=== PATIENT | female | born 1985 | race Native Hawaiian/Other Pacific Islander ===

== ENCOUNTER 2017-08-05 20:29 | Emergency (ER) | payer OTHER ==
[2017-08-05 21:08] LABS: BILIRUBIN,URINE NEGATIVE (NEGATIVE); GLUCOSE, URINE (UA) NEGATIVE (NEGATIVE); KETONES,URINE (UA) NEGATIVE (NEGATIVE); LEUKOCYTE ESTERASE, URINE NEGATIVE (NEGATIVE); NITRITE,URINE NEGATIVE (NEGATIVE); OCCULT BLOOD,URINE LARGE (NEGATIVE); PROTEIN,URINE NEGATIVE (NEGATIVE); UROBILINOGEN,URINE 0.2 (NORMAL) E.U./dL (NORMAL)
[2017-08-05 21:09] LABS: CLARITY,URINE HAZY (CLEAR)
--- NOTE | 2017-08-05 21:14 | ED Physician Documentation ---
PD HPI FEMALE - Stated complaint Stated Complaint: FEMALE /9WK OB - Chief complaint Chief Complaint: Abd Pain - History obtained from History obtained from: Patient - History of Present Illness Timing - onset: How many weeks ago (2 weeks ago had some cramps and mild vaginal spotting. Had increased spotting the past 3 days then to amount of a pad every few hours today with some small clots. She is 9 weeks EGA by dates. No fevers, back pain, nor vomiting.) Timing - details: Gradual onset, Waxing and waning Associated symptoms: Pelvic pain (cramping at times), Vaginal bleeding. No: Fever, Abdominal pain, Vaginal discharge, Genital sore/lesion, Dysuria Contributing factors: Similar symptoms before: Has not had sx before Recently seen: Not recently seen Review of Systems Constitutional: denies: Fever, Chills, Myalgias Nose: denies: Rhinorrhea / runny nose, Congestion Throat: denies: Sore throat Respiratory: denies: Cough GI: reports: Abdominal Pain. denies: Nausea, Vomiting, Diarrhea : reports: Now EGA (9 weeks). denies: Dysuria, Frequency, Discharge Neurologic: denies: Generalized weakness, Focal weakness, Numbness, Near syncope PD PAST MEDICAL HISTORY - Past Medical History Past Medical History: No - Past Surgical History Past Surgical History: No - Present Medications Home Medications: Ambulatory Orders Medication Instructions Recorded Confirmed Pnv95/Ferrous Fumarate/FA 1 tab PO DAILY 08/05/17 08/05/17 [ Formula Tablet] - Allergies Allergies/Adverse Reactions: Allergies Allergy/AdvReac Type Severity Reaction Status Date / Time No Known Drug Allergies Allergy Verified 08/05/17 20:36 - Social History Does the pt smoke?: No Smoking Status: Never smoker Does the pt drink ETOH?: No Does the pt have substance abuse?: No - Immunizations Immunizations are current?: Yes PD ED PE NORMAL - Vitals Vital signs reviewed: Yes - General General: Alert and oriented X 3, No acute distress, Well developed/nourished - Neck Neck: Supple, no meningeal sign, No adenopathy - Cardiac Cardiac: RRR, No murmur - Respiratory Respiratory: Clear bilaterally - Abdomen Abdomen: Normal bowel sounds, Soft, Non tender, Non distended, No organomegaly, Other (bedside U/S showed IUP at 7 weeks size with gest sac 9 weeks size. No free fluid. I did not see FHR. ) - Female Female : Deferred - Back Back: No CVA TTP - Derm Derm: Normal color, Warm and dry - Extremities Extremities: No deformity, No tenderness to palpate Results - Vitals Vitals: Vital Signs - 24 hr 08/05/17 08/05/17 20:32 23:43 Temperature 37.1 C Heart Rate 78 68 Respiratory 18 16 Rate Blood Pressure 105/72 110/78 O2 Saturation 100 98 Oxygen O2 Source Room air - Labs Labs: Laboratory Tests 08/05/17 08/05/17 08/05/17 21:03 21:57 21:57 WBC 14.0 H RBC 4.64 Hgb 13.4 Hct 41.0 MCV 88.4 MCH 29.0 MCHC 32.7 RDW 13.0 Plt Count 253 MPV 8.0 Neut # 9.5 H Lymph # 3.3 [place] # 0.9 Eos # 0.2 Baso # 0.1 Absolute Nucleated RBC 0.01 Nucleated RBC % 0.1 HCG, Quant Urine Color YELLOW Urine Clarity HAZY Urine pH 6.0 Ur Specific [place] 1.025 Urine Protein NEGATIVE Urine Glucose (UA) NEGATIVE Urine Ketones NEGATIVE Urine Occult Blood LARGE H Urine Nitrite NEGATIVE Urine Bilirubin NEGATIVE Urine Urobilinogen 0.2 (NORMAL) Ur Leukocyte Esterase NEGATIVE Urine RBC TNTC H Urine WBC 0-3 Ur Squamous Epith Cells FEW Squamous Urine Bacteria None Seen Ur Microscopic Review INDICATED Blood Type A POSITIVE 08/05/17 21:57 WBC RBC Hgb Hct MCV MCH MCHC RDW Plt Count MPV Neut # Lymph # [place] # Eos # Baso # Absolute Nucleated RBC Nucleated RBC % HCG, Quant 63335.00 Urine Color Urine Clarity Urine pH Ur Specific [place] Urine Protein Urine Glucose (UA) Urine Ketones Urine Occult Blood Urine Nitrite Urine Bilirubin Urine Urobilinogen Ur Leukocyte Esterase Urine RBC Urine WBC Ur Squamous Epith Cells Urine Bacteria Ur Microscopic Review Blood Type PD MEDICAL DECISION MAKING - ED course Complexity details: reviewed results (rH positive. Blood count okay. Quant 14K and U/S showing no heart beat so Radiologist says conclusive IUFD. ), considered differential (consider spotting in or miscarriage. Bedside U/S did not show heart beat and was only 7 week size. Will get formal U/S and quant HCG. ), d/w patient Departure - Departure Disposition: Home, Self Care Clinical Impression: Incomplete miscarriage Condition: Stable Record reviewed to determine appropriate education?: Yes Instructions: ED Miscarriage Incom Follow-Up: AUBRIE MIRANDA [Primary Care Provider] - Comments: There is no heartbeat seen on the ultrasound in the fetus is far enough along that that should be visible. It therefore looks like a demise and incomplete miscarriage. I am sorry for your loss. Tylenol or Ibuprofen if needed for pains. Call your [employer] [facility] tomorrow to tell them you are having a miscarriage and need to be seen in the next couple of days. Follow-up with them. Return to the ER sooner if you have significant pain, significant bleeding, fevers, feeling generally ill, other concerns. Discharge Date/Time: 08/05/17 23:43
[2017-08-05 21:20] LABS: RBC,URINE TNTC /HPF (0-5); SQUAMOUS EPITHELIAL CELL,UR FEW Squamous (<= Few)
[2017-08-05 21:21] LABS: BACTERIA,URINE None Seen /HPF (None Seen)
[2017-08-05] MEDS ORDERED: ACETAMINOPHEN 325 MG TABLET PO STA (21:44)
[2017-08-05 22:09] LABS: BASOPHILS # (AUTO) 0.1 10^3/uL (0.0-0.1); BASOPHILS % (AUTO) 0.8 %; EOSINOPHILS # (AUTO) 0.2 10^3/uL (0.0-0.7); EOSINOPHILS % (AUTO) 1.5 %; HGB - HEMOGLOBIN 13.4 g/dL (12.0-16.0); LYMPHOCYTES # (AUTO) 3.3 10^3/uL (1.5-3.5); LYMPHOCYTES % (AUTO) 23.4 %; MEAN CORPUSCULAR HGB CONC 32.7 g/dL (32.0-36.0); MEAN CORPUSCULAR VOLUME 88.4 fL (81.0-99.0); MONOCYTES # (AUTO) 0.9 10^3/uL (0.0-1.0); MONOCYTES % (AUTO) 6.6 %; NEUTROPHILS # (AUTO) 9.5 10^3/uL (1.5-6.6); NEUTROPHILS % (AUTO) 67.7 %; PLT - PLATELET COUNT 253 10^3/uL (130-450); RED BLOOD COUNT 4.64 10^6/uL (4.20-5.40)
--- NOTE | 2017-08-05 23:16 | Ultrasound Preliminary Report ---
Exam: US OB TRANSVAGINAL IMPRESSION: 1. Single intrauterine gestational sac and embryo. [place]-rump length measures 10.1 mm. No cardiac act ivity. These findings are compatible with demise. 2. Small perigestational hemorrhage. 3. Both ovaries and adnexa are normal. RADIA The above findings were discussed with Gucci Hawkins by Dr. Sofy Quigley at 23:15 hrs on 08/05/17. SITE ID: [id number]
--- NOTE | 2017-08-05 23:17 | Ultrasound Preliminary Report ---
Exam: US OB FIRST TRIMESTER IMPRESSION: 1. Single intrauterine gestational sac and embryo. [place]-rump length measures 10.1 mm. No cardiac act ivity. These findings are compatible with demise. 2. Small perigestational hemorrhage. 3. Both ovaries and adnexa are normal. RADIA The above findings were discussed with Gucci Hawkins by Dr. Sofy Quigley at 23:15 hrs on 08/05/17. SITE ID: [id number]
--- NOTE | 2017-08-05 23:29 | Ultrasound Report ---
EXAM: FIRST TRIMESTER OBSTETRIC ULTRASOUND (Less than 11 weeks) EXAM DATE: 08/05/2017 10:06 PM. CLINICAL HISTORY: Early and vaginal bleeding. LMP: 06/02/2017. COMPARISONS: None. TECHNIQUE: Transabdominal and transvaginal ultrasound examination with static image documentation. CLINICAL DATES: EGA 9 weeks 1 day with KIMBERLY 03/09/2018 based on LMP. ASSESSMENT: Gestational Sac: Single intrauterine. Embryo: CRL (crown-rump length) 10.1 mm = 7 weeks 1 day. Cardiac activity: None. Yolk sac: 2.8 mm. Amniotic fluid: Not accurately assessed at this gestational age. Early placenta: Not visible at this gestational age. Other: Small perigestational hemorrhage is noted. MATERNAL STRUCTURES: Uterus: Anteverted. Unremarkable. Cervix: Closed. Right Ovary/Adnexa: Unremarkable. The ovary measures 2.7 x 1.9 x 1.8 cm, volume 4.8 cc. Normal folli cles are noted. Left Ovary/Adnexa: Unremarkable. The ovary measures 2.7 x 2.2 x 2.6 cm, volume 7.8 cc. Normal follic les are noted. Free Fluid: None. Other: None. IMPRESSION: 1. Single intrauterine gestational sac and embryo. [place]-rump length measures 10.1 mm. No cardiac act ivity. These findings are compatible with demise. 2. Small perigestational hemorrhage. 3. Both ovaries and adnexa are normal. RADIA The above findings were discussed with Gucci Hawkins by Dr. Sofy Quigley at 23:15 hrs on 08/05/17. Referring Provider Line: [phone] SITE ID: [id number]
--- NOTE | 2017-08-05 23:29 | Ultrasound Report ---
EXAM: FIRST TRIMESTER OBSTETRIC ULTRASOUND (Less than 11 weeks) EXAM DATE: 08/05/2017 10:06 PM. CLINICAL HISTORY: Early and vaginal bleeding. LMP: 06/02/2017. COMPARISONS: None. TECHNIQUE: Transabdominal and transvaginal ultrasound examination with static image documentation. CLINICAL DATES: EGA 9 weeks 1 day with KIMBERLY 03/09/2018 based on LMP. ASSESSMENT: Gestational Sac: Single intrauterine. Embryo: CRL (crown-rump length) 10.1 mm = 7 weeks 1 day. Cardiac activity: None. Yolk sac: 2.8 mm. Amniotic fluid: Not accurately assessed at this gestational age. Early placenta: Not visible at this gestational age. Other: Small perigestational hemorrhage is noted. MATERNAL STRUCTURES: Uterus: Anteverted. Unremarkable. Cervix: Closed. Right Ovary/Adnexa: Unremarkable. The ovary measures 2.7 x 1.9 x 1.8 cm, volume 4.8 cc. Normal folli cles are noted. Left Ovary/Adnexa: Unremarkable. The ovary measures 2.7 x 2.2 x 2.6 cm, volume 7.8 cc. Normal follic les are noted. Free Fluid: None. Other: None. IMPRESSION: 1. Single intrauterine gestational sac and embryo. [place]-rump length measures 10.1 mm. No cardiac act ivity. These findings are compatible with demise. 2. Small perigestational hemorrhage. 3. Both ovaries and adnexa are normal. RADIA The above findings were discussed with Gucci Hawkins by Dr. Sofy Quigley at 23:15 hrs on 08/05/17. Referring Provider Line: [phone] SITE ID: [id number]
[2017-08-05 23:44] VITALS: BP 110/78
== END 2017-08-05 23:43 | disposition home or self-care (01) ==
LOC: ED 20:29
DX: O03.4 Incomplete spontaneous abortion without complication (principal)
CPT/HCPCS: 36415; 76801; 76817; 81001; 84702; 85025; 86900; 86901; 99283; A9270; 81003

== ENCOUNTER 2017-08-07 20:13 | Emergency (ER) | payer OTHER ==
--- NOTE | 2017-08-07 20:45 | ED Physician Documentation ---
PD HPI FEMALE - Stated complaint Stated Complaint: POSS MISCARRY - Chief complaint Chief Complaint: Abd Pain - History obtained from History obtained from: Patient, Family - History of Present Illness Timing - onset: Today Pain level max: 5 Pain level max: 3 Associated symptoms: No: Fever, Chest/shoulder pain, Abdominal pain, Back pain Contributing factors: - Additional information Additional information: Patient is a 32-year-old female, 3 para 2 who was diagnosed with an intrauterine demise 3 days ago. Today started bleeding heavily and passing large clots. This started approximately an hour and a half ago. Came in for evaluation as her primary care provider told her that if she had a large amount of bleeding she needs to be seen in the emergency department. She is having pelvic cramping consistent with her normal menses. She is not lightheaded. No chest pain. Review of Systems Ten Systems: 10 systems reviewed and negative Constitutional: denies: Fever, Chills Ears: denies: Ear pain Nose: denies: Rhinorrhea / runny nose, Congestion Throat: denies: Sore throat Respiratory: denies: Cough GI: denies: Nausea, Vomiting, Diarrhea : reports: Vaginal bleeding Skin: denies: Rash Musculoskeletal: denies: Neck pain, Back pain Neurologic: denies: Focal weakness, Syncope, Headache PD PAST MEDICAL HISTORY - Past Medical History Past Medical History: No - Past Surgical History Past Surgical History: No - Present Medications Home Medications: Ambulatory Orders Medication Instructions Recorded Confirmed Pnv95/Ferrous Fumarate/FA 1 tab PO DAILY 08/05/17 08/05/17 [ Formula Tablet] - Allergies Allergies/Adverse Reactions: Allergies Allergy/AdvReac Type Severity Reaction Status Date / Time No Known Drug Allergies Allergy Verified 08/07/17 20:39 - Social History Does the pt smoke?: No Smoking Status: Never smoker Does the pt drink ETOH?: No Does the pt have substance abuse?: No - Immunizations Immunizations are current?: Yes - POLST Patient has POLST: No PD ED PE NORMAL - Vitals Vital signs reviewed: Yes - General General: Alert and oriented X 3, No acute distress - HEENT HEENT: Moist mucous membranes - Neck Neck: Supple, no meningeal sign - Cardiac Cardiac: RRR, Strong equal pulses - Respiratory Respiratory: No respiratory distress, Clear bilaterally - Abdomen Abdomen: Soft, Non tender, Non distended - Derm Derm: Warm and dry - Neuro Neuro: Alert and oriented X 3 - Psych Psych: Normal mood, Normal affect Results - Vitals Vitals: Vital Signs - 24 hr 08/07/17 08/07/17 08/07/17 20:20 21:44 22:17 Temperature 36.3 C L Heart Rate 124 H 113 H 116 H Respiratory 18 16 18 Rate Blood Pressure 131/94 H 120/83 H 90/57 L O2 Saturation 100 98 99 08/07/17 08/07/17 22:18 23:13 Temperature Heart Rate 106 H 90 Respiratory 16 Rate Blood Pressure 104/74 124/89 H O2 Saturation 100 Oxygen O2 Source Room air - Labs Labs: Laboratory Tests 08/07/17 08/07/17 08/07/17 20:35 20:36 20:36 WBC 17.9 H RBC 4.60 Hgb 13.2 Hct 40.6 MCV 88.2 MCH 28.6 MCHC 32.5 RDW 13.2 Plt Count 292 MPV 8.1 Neut # 13.6 H Lymph # 3.2 [place] # 0.8 Eos # 0.2 Baso # 0.1 Absolute Nucleated RBC 0.01 Nucleated RBC % 0.0 Sodium 135 Potassium 3.3 L Chloride 102 Carbon Dioxide 23 Anion Gap 10.0 BUN 10 Creatinine 0.7 Estimated GFR (MDRD) 98 Glucose 149 H Calcium 9.1 Total Bilirubin 0.7 AST 32 ALT 23 Alkaline Phosphatase 73 Total Protein 8.3 H Albumin 4.1 Globulin 4.2 Albumin/Globulin Ratio 1.0 Lipase 35 HCG, Quant Urine Color RED/BLOODY Urine Clarity BLOODY Urine pH 7.0 Ur Specific [place] 1.025 Urine Protein >=300 H Urine Glucose (UA) 100 H Urine Ketones NEGATIVE Urine Occult Blood LARGE H Urine Nitrite POSITIVE H Urine Bilirubin NEGATIVE Urine Urobilinogen 0.2 (NORMAL) Ur Leukocyte Esterase TRACE H Urine RBC TNTC H Urine WBC 0-3 Ur Squamous Epith Cells NONE SEEN Urine Bacteria None Seen Ur Microscopic Review INDICATED Urine Culture Comments INDICATED 08/07/17 20:36 WBC RBC Hgb Hct MCV MCH MCHC RDW Plt Count MPV Neut # Lymph # [place] # Eos # Baso # Absolute Nucleated RBC Nucleated RBC % Sodium Potassium Chloride Carbon Dioxide Anion Gap BUN Creatinine Estimated GFR (MDRD) Glucose Calcium Total Bilirubin AST ALT Alkaline Phosphatase Total Protein Albumin Globulin Albumin/Globulin Ratio Lipase HCG, Quant 7323.00 Urine Color Urine Clarity Urine pH Ur Specific [place] Urine Protein Urine Glucose (UA) Urine Ketones Urine Occult Blood Urine Nitrite Urine Bilirubin Urine Urobilinogen Ur Leukocyte Esterase Urine RBC Urine WBC Ur Squamous Epith Cells Urine Bacteria Ur Microscopic Review Urine Culture Comments PD MEDICAL DECISION MAKING - ED course Complexity details: reviewed results, re-evaluated patient, considered differential, d/w patient ED course: Bedside ultrasound reveals an empty uterus. No evidence of retained products at this time. Her bleeding decreased in the emergency department. She is not lightheaded or dizzy. She did receive IV fluids while in the emergency department. No significant change in her hemoglobin from prior visit. HCG is decreasing as expected. Pain controlled with Tylenol. Will have her follow-up with her doctor for further care. Patient counseled regarding signs and symptoms for which I believe and urgent re-evaluation would be necessary. Patient with good understanding of and agreement to plan and is comfortable going home at this time This document was made in part using voice recognition software. While efforts are made to proofread this document, sound alike and grammatical errors may occur. Departure - Departure Disposition: 01 Home, Self Care Clinical Impression: Complete miscarriage Condition: Good Instructions: ED Miscarriage Completed Follow-Up: AUBRIE MIRANDA [Primary Care Provider] - Within 3 Days Comments: Return if you worsen. The bleeding should decrease over the night. You may use Motrin or Tylenol as needed for pain. Discharge Date/Time: 08/07/17 23:25
[2017-08-07 20:47] LABS: BASOPHILS # (AUTO) 0.1 10^3/uL (0.0-0.1); BASOPHILS % (AUTO) 0.5 %; EOSINOPHILS # (AUTO) 0.2 10^3/uL (0.0-0.7); HGB - HEMOGLOBIN 13.2 g/dL (12.0-16.0); LYMPHOCYTES # (AUTO) 3.2 10^3/uL (1.5-3.5); LYMPHOCYTES % (AUTO) 17.9 %; MEAN CORPUSCULAR HEMOGLOBIN 28.6 pg (27.0-31.0); MEAN CORPUSCULAR HGB CONC 32.5 g/dL (32.0-36.0); MEAN CORPUSCULAR VOLUME 88.2 fL (81.0-99.0); MEAN PLATELET VOLUME 8.1 fL (7.9-10.8); MONOCYTES # (AUTO) 0.8 10^3/uL (0.0-1.0); MONOCYTES % (AUTO) 4.4 %; NEUTROPHILS # (AUTO) 13.6 10^3/uL (1.5-6.6); NEUTROPHILS % (AUTO) 76.2 %; PLT - PLATELET COUNT 292 10^3/uL (130-450); RED CELL DISTRIBUTION WIDTH 13.2 % (12.0-15.0); WHITE BLOOD COUNT 17.9 x10^3/uL (4.8-10.8)
[2017-08-07 20:57] LABS: BILIRUBIN,URINE NEGATIVE (NEGATIVE); GLUCOSE, URINE (UA) 100 mg/dL (NEGATIVE); KETONES,URINE (UA) NEGATIVE (NEGATIVE); LEUKOCYTE ESTERASE, URINE TRACE (NEGATIVE); NITRITE,URINE POSITIVE (NEGATIVE); OCCULT BLOOD,URINE LARGE (NEGATIVE); PROTEIN,URINE >=300 mg/dL (NEGATIVE); UROBILINOGEN,URINE 0.2 (NORMAL) E.U./dL (NORMAL)
[2017-08-07 20:59] LABS: ALBUMIN 4.1 g/dL (3.2-5.5); BILIRUBIN,TOTAL 0.7 mg/dL (0.2-1.0); CALCIUM 9.1 mg/dL (8.5-10.3); CREATININE 0.7 mg/dL (0.4-1.0); TOTAL PROTEIN 8.3 g/dL (6.7-8.2)
[2017-08-07 21:01] LABS: CLARITY,URINE BLOODY (CLEAR)
[2017-08-07 21:04] LABS: BACTERIA,URINE None Seen /HPF (None Seen); RBC,URINE TNTC /HPF (0-5); SQUAMOUS EPITHELIAL CELL,UR NONE SEEN (<= Few)
[2017-08-07] MEDS ORDERED: ACETAMINOPHEN 325 MG TABLET PO STA (21:18)
[2017-08-07] MEDS ORDERED: SODIUM CHLORIDE 0.9% 1,000 ML IV ONE (22:13)
[2017-08-07 23:15] VITALS: BP 124/89
== END 2017-08-07 23:25 | disposition home or self-care (01) ==
LOC: ED 20:13
DX: O03.9 Complete or unspecified spontaneous abortion without complication (principal)
CPT/HCPCS: 36415; 80053; 81001; 83690; 84702; 85025; 87086; 96360; 99283; A9270; 81003; 86850; 86900; 86901

== ENCOUNTER 2018-01-16 12:55 | Day surgery (SDC) | payer OTHER ==
[2018-01-16] MEDS ORDERED: ceFAZolin 2 GM/50 ML 2 GM/50 ML BAG IV ONE (13:01)
[2018-01-16] MEDS ORDERED: LACTATED RINGERS 1,000 ML IV ONE ×2 (13:28→15:53)
--- NOTE | 2018-01-16 13:30 | ANESTHESIA ---
Pre-Anesthesia VS, & Labs - Diagnosis Missed AB 13 weeks - Procedure D&E Vital Signs: Temp Pulse Resp BP Pulse Ox 36.5 C 72 16 105/75 99 01/16/18 13:05 01/16/18 13:05 01/16/18 13:05 01/16/18 13:05 01/16/18 13:05 Height 5 ft 3 in Weight (kg) 71.21 kg Body Mass Index 27.3 - NPO Other Last Fluid Intake: 0600 oj Last Food Intake: 0600 hashbrowns - Is Patient ?: Yes (Missed Ab) - Lab Results Lab results reviewed: Yes Home Medications and Allergies Pnv95/Ferrous Fumarate/FA [ Formula Tablet] 1 tab PO DAILY 08/05/17 Allergies/Adverse Reactions: Allergies Allergy/AdvReac Type Severity Reaction Status Date / Time No Known Drug Allergies Allergy Verified 08/07/17 20:39 Anes History & Medical History - Anesthetic History Family history of Anesthesia Complications: Denies Family history of Malignant Hyperthermia: Denies - Medical History Cardiovascular: reports: None Pulmonary: reports: None Gastrointestinal: reports: None Urinary: reports: None Neuro: reports: None Musculoskeletal: reports: None Endocrine/Autoimmune: reports: None Skin: reports: None Smoking Status: Never smoker Psychosocial: reports: No issues indicated Exam General: Alert, Oriented x3, Cooperative, No acute distress Dental: WNL Mouth Openin Fingerbreadth Neck Mobility: Normal Mallampati classification: I Thyromental Distance: 4-6 cm Respiratory: Lungs clear, Normal breath sounds, No respiratory distress, No accessory muscle use Cardiovascular: Regular rate, Normal S1, Normal S2, No murmurs Mental/Cognitive Status: Alert/Oriented X3 (12), Normal for patient Cognitive Status: Within normal limits Plan Anesthesia Type: General Consent for Procedure(s) Verified and Reviewed: Yes Code Status: Attempt Resuscitation ASA classification: 1-Healthy patient Is this case an emergency?: No
[2018-01-16] MEDS ORDERED: BUPIVACAINE 0.25%-EPI 1:200000 PF 30 ML VIAL ONE (14:26)
[2018-01-16] MEDS ORDERED: BUPIVACAINE 0.25%-EPI 1:200000 PF 30 ML VIAL SUBQ ONE ×2 (14:57)
[2018-01-16] MEDS ORDERED: ONDANSETRON 4 MG/2 ML VIAL IVP ONE (15:00)
[2018-01-16] MEDS ORDERED: fentaNYL 100 MCG/2 ML VIAL IVP ONE (15:00)
[2018-01-16] MEDS ORDERED: MIDAZOLAM 2 MG/2 ML VIAL IVP ONE (15:00)
[2018-01-16] MEDS ORDERED: ROCURONIUM 50 MG/5 ML VIAL IVP ONE (15:00)
[2018-01-16] MEDS ORDERED: PROPOFOL 200 MG/20 ML VIAL IVP ONE (15:00)
[2018-01-16] MEDS ORDERED: LIDOCAINE-MPF 2% 5 ML VIAL IM ONE (15:00)
[2018-01-16] MEDS ORDERED: SUCCINYLCHOLINE 200 MG/10 ML VIAL IVP ONE (15:00)
[2018-01-16] MEDS ORDERED: SILVER NITRATE APPLICATOR TOP ONE (15:14)
[2018-01-16] MEDS ORDERED: ONDANSETRON 4 MG/2 ML VIAL IVP PRN (15:26)
[2018-01-16] MEDS ORDERED: HYDROcod/ACETAM 10 MG/325 MG TABLET PO PRN (15:26)
--- NOTE | 2018-01-16 15:29 | OPERATIVE REPORT ---
Operative Report - General Procedure Date: 01/16/18 Planned Procedure: Suction Dilatation and Evacuation Pre-Op Diagnosis: Missed at 13+4 weeks Procedure Performed: Suction Dilatation and Evacuation Post Op Diagnosis: LUIS - Procedure Note Primary Surgeon: Dr. Karon Couch Secondary Surgeon: None Anesthesia Provider: Don Khan Anesthesia Technique: General ET tube, Local (0.25% Marcaine with epi, 10 ml) Pathology: Products of conception sent for chromosome analysis and pathology IV Fluids (mL): 500 Estimated Blood Loss (mL): 400 Urine Output (mL): 0 Complications: None - Other Other Information/Narrative: Indications: The patient is a 32 yo A1 at 14 wks by LMP, who was diagnosed with missed at 13+4 wks during sono at yesterday's clinic visit. She is here today for surgical mgmt of loss. Risks, benefits, limitations, expectations, and alternatives discussed, and consent was reviewed and signed prior to surgery. Findings: Exam under anesthesia noted a 13 wk anteverted uterus. Operative findings noted a large amount of tissue, and all parts were accounted for. Procedure: The patient was taken to the operating room, where general endotracheal anesthesia was administered without difficulty. She was then placed in high dorsal lithotomy position with lower extremities in yellow fin stirrups. Exam under anesthesia was performed with findings as noted above. The perineum and vagina were prepped and draped in a sterile fashion, and in/out catheterization was performed. No urine was obtained. Procedure time-out was then performed. A sterile bivalved speculum was then placed in the vagina, and the anterior lip of the cervix grasped with a single toothed tenaculum. The cervix was the serially dilated with Alessandro dilators until a 12 mm curved, rigid suction curette could be advanced. Using suction, the majority of tissue was removed. Sharp curettage was then performed with minimal additional tissue noted, and good crie was noted on all four bynum of the uterus. Examination of removed tissue accounted for appropriate parts. The uterus contracted well, and cervical bleeding decreased. The tenaculum was then removed, and the tenaculum sites hemostatic after application of silver nitrate. The procedure was then deemed complete. All instruments were removed; sponge, lap, and needle count were correct x 3; and there were no complications. The patient was then extubated and transferred to the PACU in stable condition.
[2018-01-16] MEDS: MEPERIDINE 50 MG/ML VIAL ONE ×3 (15:30→15:40)
[2018-01-16 16:50] VITALS: BP 97/65
== END 2018-01-16 12:56 | disposition home or self-care (01) ==
LOC: SDS 12:55
PROVIDERS: ATTEND Obstetrics & Gynecology
PROC: 10D17ZZ Extraction of Products of Conception, Retained, Via Natural or Artificial Opening (ICD-10-PCS; principal; 2018-01-16 14:00)
DX: O02.1 Missed abortion (principal)
CPT/HCPCS: 59820; 81599; J0330; J0690; J2175; J7120

== ENCOUNTER 2018-04-29 11:32 | Emergency (ER) | payer OTHER ==
[2018-04-29] MEDS ORDERED: PROCHLORPERAZINE 10 MG/2 ML VIAL IVP STA (13:15)
[2018-04-29] MEDS ORDERED: KETOROLAC 15 MG/ML VIAL IVP STA (13:15)
[2018-04-29] MEDS ORDERED: diphenhydrAMINE INJ 50 MG/ML VIAL IVP STA (13:15)
--- NOTE | 2018-04-29 13:17 | ED Physician Documentation ---
History of Present Illness - Stated complaint Stated Complaint: HEADACHE/COLD SX/ FEVER/BODY ACHES - Chief complaint Chief Complaint: General - History obtained from History obtained from: Patient, Family - History of Present Illness Timing: Other (This is a 32-year-old woman with history of migraines who developed a headache that was gradual in onset starting 2 days ago. It was associated with fevers, chills, body aches, those have resolved but the headache persists. The headache is on both sides, a throbbing that moves from one side to the other. Not associated with nausea or light sensitivity. There is no neck stiffness with it. No known sick contacts. No recent travel. She tried Tylenol which was ineffective.) Review of Systems Constitutional: reports: Fever (gone), Chills (gone), Myalgias (improving) Ears: denies: Ear pain Nose: denies: Rhinorrhea / runny nose, Congestion Throat: denies: Sore throat Respiratory: denies: Dyspnea, Cough PD PAST MEDICAL HISTORY - Past Medical History Cardiovascular: None Respiratory: None Neuro: None Endocrine/Autoimmune: None GI: None : None HEENT: None Psych: None Musculoskeletal: None Derm: None - Past Surgical History Past Surgical History: No - Present Medications Home Medications: Ambulatory Orders Medication Instructions Recorded Confirmed Pnv95/Ferrous Fumarate/FA 1 tab PO DAILY 08/05/17 01/16/18 [ Formula Tablet] Ibuprofen [Motrin] 800 mg PO Q8H PRN #30 tablet 04/29/18 SUMAtriptan [Imitrex] 25 mg PO BID PRN #10 tablet 04/29/18 - Allergies Allergies/Adverse Reactions: Allergies Allergy/AdvReac Type Severity Reaction Status Date / Time No Known Drug Allergies Allergy Verified 04/29/18 12:41 - Social History Does the pt smoke?: No Smoking Status: Never smoker Does the pt drink ETOH?: No Does the pt have substance abuse?: No - Immunizations Immunizations are current?: Yes - POLST Patient has POLST: No PD ED PE NORMAL - Vitals Vital signs reviewed: Yes - General General: Alert and oriented X 3, No acute distress - HEENT HEENT: PERRL, EOMI - Neck Neck: Supple, no meningeal sign, No bony TTP - Cardiac Cardiac: RRR, No murmur - Respiratory Respiratory: No respiratory distress, Clear bilaterally - Abdomen Abdomen: Non tender - Derm Derm: No rash - Neuro Neuro: Alert and oriented X 3, gut carrier 2-12 intact Eye Opening: Spontaneous Motor: Obeys Commands Verbal: Oriented GCS Score: 15 Results - Vitals Vitals: Vital Signs - 24 hr 04/29/18 11:41 Temperature 36.8 C Heart Rate 99 Respiratory 17 Rate Blood Pressure 111/74 O2 Saturation 99 Oxygen O2 Source Room air PD MEDICAL DECISION MAKING - ED course ED course: This is a 32-year-old woman who presents with a headache that was preceded by an influenza-like illness. There is no utility in testing or treating for influenza at this juncture given that she has been ill for more than 48 hours. The headache is gradual in onset and not associated with neck stiffness. I had ordered IV meds including Compazine and Benadryl and Toradol which the patient declined she just wants an oral option and immediate discharge. Departure - Departure Disposition: 01 Home, Self Care Clinical Impression: Viral syndrome Headache Qualifiers: Headache type: unspecified Headache chronicity pattern: acute headache Intractability: not intractable Qualified Code(s): R51 - Headache Condition: Good Record reviewed to determine appropriate education?: Yes Instructions: ED Viral Syndrome, ED Headache Migraine Prescriptions: Ibuprofen [Motrin] 800 mg PO Q8H PRN #30 tablet PRN Reason: PAIN &/OR FEVER SUMAtriptan [Imitrex] 25 mg PO BID PRN #10 tablet PRN Reason: Headache Comments: Return if worse or unresolved tomorrow morning. Forms: Activity restrictions
[2018-04-29] MEDS ORDERED: SUMAtriptan 25 MG TABLET PO STA (13:33)
[2018-04-29] MEDS ORDERED: IBUPROFEN 800 MG TABLET PO STA (13:33)
[2018-04-29 13:47] VITALS: BP 103/69
== END 2018-04-29 13:49 | disposition home or self-care (01) ==
LOC: ED 11:32
DX: B34.9 Viral infection, unspecified (principal); R51 Headache
CPT/HCPCS: 99283; A9270